=== PATIENT | female | born 1975 | race Caucasian/White ===

== ENCOUNTER 2022-12-07 14:12 | Emergency (ER) | payer OTHER, SELFPAY ==
--- NOTE | ~2022-12-07 | XR_ITS ---
EXAMINATION: XR hand RT 2V INDICATION: Right hand pain, initial encounter TECHNIQUE: Three views of the right hand are obtained. COMPARISON: None available FINDINGS: There is an acute, traumatic, closed oblique distal neck fracture of the fifth metacarpal. Mild deformity in the mid neck of the fifth metacarpal suggests prior injury. There is mild palmar an gulation at the fracture site. No additional acute fracture is identified. The joint spaces are jn l. Soft tissue swelling surrounds the fracture. IMPRESSION: 1. Oblique distal neck fracture of the fifth metacarpal with mild palmar angulation. Reviewed, dictated and finalized at location A. NICAL SOLUTIONS CONSULTANT IMPRESSION: 1. Oblique distal neck fracture of the fifth metacarpal with mild palmar angula tion.
[2022-12-07 14:15] VITALS: BP 148/92; PULSE 94; RESP 20; TEMP 37.3; O2SAT 98
--- NOTE | 2022-12-07 14:28 | PC.NURSE ---
pt declined ice pack. increased pain with ice pack.
--- NOTE | 2022-12-07 14:45 | ED.UPPEXIN ---
HPI - Extremity Injury (Upper) General Chief Complaint: Extremity Injury, Upper Stated Complaint: hand pain Time Seen by Provider: 12/07/22 14:14 Source: patient Mode of arrival: ambulatory Limitations: no limitations History of Present Illness HPI narrative: this is a 47-year-old female who presents after she fell yesterday and hit her right hand on the side of a wall causing pain some swelling with mild tingling in fingers with a brisk radial pulse on the right has decreased range of motion secondary to pain and inflammation. complaint: injury to: right Onset (ago): day(s) Other Extremity Injury: Right: hand ( bruising and swelling) Handedness: right Place: home Severity: moderate Related Data Home Medications Medication Instructions Recorded Confirmed No Home Medications 12/07/22 12/07/22 Allergies Allergy/AdvReac Type Severity Reaction Status Date / Time No Known Allergies Allergy Verified 01/10/21 11:21 Review of Systems Review of Systems: All systems reviewed & are unremarkable except as noted in HPI and below PMFSH Past Medical History Medical History Cervicalgia Encounter for screening for depression URI (upper respiratory infection) Surgical History Surgical History Masses of both breasts Remove; normal Family History Family History Mother Mitral valve prolapse Social History Social History Smoking packs per day: 1 Smoking cigarettes per day: 20.0 Years smoked: 25 Smoking pack-years: 25.00 Smoking status: Current every day smoker Tobacco type: cigarettes Alcohol intake: current Alcohol use details: social Substance use: never Substance use type: does not use Living arrangements: with family Additional living arrangements comments: Has 1 daughter Occupation/Education: occupation 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 Gender identity (if verbalized by the patient): Female Exam Const: General: healthy appearing Nutritional Appearance: well nourished Orientation/consciousness: patient oriented x3 Limitations: no limitations HENMT: Head: normal to inspection Face/Nose/Sinus: Normal external nose present Face and sinus: normal facial exam Mouth: Yes Normal oral and palatal mucosa present Eyes: Conjunctivae: conjunctivae normal Pupils: Equal, round and reactive pupils present EOM: EOMs intact bilaterally Neck: Neck: normal visual inspection Chest: Chest palpation & inspection: normal inspection of the chest Resp: Effort & Inspection: normal respiratory effort Auscultation: clear to auscultation bilaterally Cardio: Rate: regular rate Rhythm: regular rhythm GI: GI Palp: Yes Soft to palpation Back/Spine/Pelvis: Back: no CVA tenderness Skin: General skin exam: normal color Wounds: wounds noted Neuro: General: patient oriented x3, moves all extremities, no meningeal signs and no focal motor deficits Extrem: Other: Bruising and swelling anterior surface of her right hand Psych: Mental Status: mental status grossly normal Affect: normal affect Attitude: cooperative Course Course Emergency Course: patient declined any ice or pain medication, x-ray reviewed with patient showing a mildly displaced 5th metacarpal fracture of the right hand Vital Signs Vital signs: Vital Signs Temperature 37.3 C 12/07/22 14:15 Pulse Rate 94 12/07/22 14:15 Respiratory Rate 12/07/22 14:15 Blood Pressure 148/92 H 12/07/22 14:15 Pulse Oximetry 98 12/07/22 14:15 Oxygen Delivery Room Air 12/07/22 14:15 Temperature 37.3 C 12/07/22 14:15 Pulse Rate 94 12/07/22 14:15 Respiratory Rate 20 12/07/22 14:15 Blood Pressure 148/92 H 12/07/22 14:15 Pulse Oximetry 98 12/07/22 14:
[2022-12-07 15:10] VITALS: BP 121/90; PULSE 72; RESP 16; O2SAT 98
== END 2022-12-07 15:15 | disposition home or self-care (01) ==
PROVIDERS: Emergency Provider Emergency Medicine
DX: S62.91XA Unspecified fracture of right hand, initial encounter for closed fracture (principal); F17.210 Nicotine dependence, cigarettes, uncomplicated; W18.39XA Other fall on same level, initial encounter
CPT/HCPCS: 29125; 73120; 99284

== ENCOUNTER 2023-04-17 11:11 | Outpatient (CLI) | payer OTHER, SELFPAY ==
--- NOTE | ~2023-04-17 | MM_ITS ---
EXAMINATION: MM screening kirsten BI w matty HISTORY: Screening mammogram TECHNIQUE: Craniocaudal and mediolateral oblique 3-D tomosynthesis images were obtained and synthetic 2-D images were generated. CAD analysis was submitted and interpreted. COMPARISON: No prior mammogram is available for comparison at this institution. BREAST PARENCHYMAL COMPOSITION: The breasts are extremely dense, which lowers the sensitivity of mamm ography. FINDINGS: Scattered bilateral punctate benign microcalcifications. There is no evidence of suspicious mass, calcification, or architectural distortion to suggest malignancy in either breast. There has b een no suspicious interval change. IMPRESSION: 1. No mammographic evidence of malignancy. 2. Recommend routine screening mammography in one year. BI-RADS Category 2: Benign finding(s). Reviewed, dictated and finalized at location A.
--- NOTE | 2023-04-17 11:25 | ECG_ITS ---
Measurements Intervals [place] Rate: 61 P: 64 [place]: 154 QRS: 54 QRSD: 85 T: 48 QT: 401 QTc: 405 Interpretive Statements SINUS RHYTHM LOW QRS VOLTAGE IN PRECORDIAL LEADS [QRS DEFLECTION < 1.0 mV IN CHEST LEADS] ABNORMAL ECG NO PREVIOUS ECG AVAILABLE FOR COMPARISON Electronically Signed On 04-18-2023 14:41:07 CDT by Joshua Moreno M.D.
[2023-04-17 11:26] LABS: Basophils Absolute Auto 0.02 K/mm3 (0.00-0.10); Basophils Percent Auto 0.2 % (0.0-1.0); Hematocrit 43.4 % (35.0-49.0); Hemoglobin 14.1 g/dL (12.0-15.0); Immature Granulocyte Absolute 0.04 K/mm3 (0.00-0.00); Immature Granulocyte Percent A 0.4 % (0.0-0.0); Lymphocytes Absolute Auto 2.42 K/mm3 (1.10-4.50); Lymphocytes Percent Auto 24.4 % (18.0-42.0); Mean Corpuscular HGB Conc 32.5 g/dL (32.0-36.0); Mean Corpuscular Hemoglobin 30.9 pg (27.0-31.0); Mean Corpuscular Volume 95.2 fL (78.0-102.0); Mean Platelet Volume 8.8 fl (9.2-11.8); Monocytes Absolute Auto 0.74 K/mm3 (0.10-0.90); Monocytes Percent Auto 7.5 % (2.0-11.0); Neutrophils Absolute Auto 6.5 K/mm3 (1.7-7.2); Neutrophils Percent Auto 65.5 % (50.0-70.0); Platelet Count Result 274 K/mm3 (150-420); Red Blood Count 4.56 M/mm3 (4.20-5.40); Red Cell Distribution Width 12.9 % (11.6-14.4); White Blood Count 9.9 K/mm3 (4.8-10.8)
[2023-04-17 12:14] LABS: Alanine Aminotransferase 27 U/L (14-59); Albumin Level 3.7 g/dL (3.4-5.0); Alkaline Phosphatase 64 U/L (46-116); Anion Gap 10 mmol/L (8-16); Aspartate Amino Transferase 10 U/L (15-37); Bilirubin,Total 0.6 mg/dL (0.00-1.00); Blood Urea Nitrogen 13 mg/dL (7-18); Calcium 8.8 mg/dL (8.5-10.1); Carbon Dioxide 26 mmol/L (21-32); Chloride 105 mmol/L (98-108); Estimated Glomerular Filt Rate > 60; Free T4 Free Thyroxine 0.83 ng/dL (0.76-1.46); Glucose 101 mg/dL (70-99); Iron 115 ug/dL (50-170); Magnesium 1.9 mg/dL (1.8-2.4); Osmolality Calculated 292 mOsm/kg (285-295); Potassium 4.3 mmol/L (3.5-5.1); Sodium 141 mmol/L (136-145); Thyroid Stimulating Hormone 1.02 uIU/mL (0.36-3.74); Total Protein 6.9 g/dL (6.4-8.2)
[2023-04-22 06:43] LABS: Vitamin D 25 Hydroxy 26 ng/mL (30-100)
== END 2023-04-17 11:12 | disposition home or self-care (01) ==
LOC: CHSIMG 11:13
PROVIDERS: PCP Nurse Practitioner Family; Visit Provider Nurse Practitioner Family
DX: Z12.31 Encounter for screening mammogram for malignant neoplasm of breast (principal); I10 Essential (primary) hypertension; R53.83 Other fatigue; E03.9 Hypothyroidism, unspecified; Z79.899 Other long term (current) drug therapy; D64.9 Anemia, unspecified; I34.1 Nonrheumatic mitral (valve) prolapse; R94.31 Abnormal electrocardiogram [ECG] [EKG]
CPT/HCPCS: 36415; 77063; 77067; 80053; 82306; 83540; 83735; 84439; 84443; 85025; 93005

== ENCOUNTER 2023-04-20 13:17 | Outpatient (CLI) | payer OTHER, SELFPAY ==
--- NOTE | ~2023-04-20 | US_ITS ---
US breast BI complete DATE: 04/20/2023 14:08 INDICATION: Extremely dense breast tissue, which limits the sensitivity of mammogram TECHNIQUE: Complete bilateral breast ultrasound examination: All 4 quadrants and subareolar areas COMPARISON: 04/17/2023 bilateral screening mammogram FINDINGS: There are dense fibroglandular stroma is noted throughout both breasts, with limited penetr ation particularly posteriorly. There are prominent ducts in the subareolar areas. On the right there is a 5 x 6 x 8.4 mm simple cyst with through transmission posterior enhancement at 10:00 9 cm from nipple. On the left there is a parallel circumscribed hypoechoic 5.9 x 9.7 mm lesion with through transmissio n posterior enhancement, likely a benign cyst. No suspicious solid lesion is detected. IMPRESSION: BI-RADS Category 2: Benign Reviewed, dictated and finalized at Location A. Reviewed, dictated and finalized at location A. IMPRESSION: BI-RADS Category 2: Benign
== END 2023-04-20 13:18 | disposition home or self-care (01) ==
LOC: CHSIMG 13:19
PROVIDERS: PCP Nurse Practitioner Family; Visit Provider Nurse Practitioner Family
DX: R92.2 Inconclusive mammogram (principal)
CPT/HCPCS: 76641

== ENCOUNTER 2023-12-11 08:07 | Emergency (ER) | payer SELFPAY ==
--- NOTE | ~2023-12-11 | XR_ITS ---
EXAMINATION: XR chest 1V portable INDICATION: Cough TECHNIQUE: Portable AP chest at 0832 hours COMPARISON: 02/18/2018 FINDINGS: There are subtle airspace opacities of the left midlung zone. No pleural effusion or pneumo thorax. The cardiomediastinal silhouette is normal. IMPRESSION: 1. Subtle airspace opacities of the left midlung zone, likely pneumonia. Reviewed, dictated and finalized at location L. UCE ASSOCIATE
[2023-12-11 08:17] VITALS: BP 134/88; PULSE 86; RESP 20; TEMP 37.2; O2SAT 98
--- NOTE | 2023-12-11 08:24 | ED.GENADULT ---
HPI - General Adult General Chief complaint: Upper Respiratory Infection Stated complaint: URI Time Seen by Provider: 12/11/23 08:10 History of Present Illness HPI narrative: Jesse is a 48F with a PMH of depression and tobacco abuse that presented to the ED not feeling well. A cough started a few days ago. However, the next day she had fatigue, body aches, wheezing, and dyspnea. It was not getting any better so she came to the ED. Related Data Allergies Allergy/AdvReac Type Severity Reaction Status Date / Time No Known Allergies Allergy Verified 12/11/23 08:20 Review of Systems Review of Systems: All systems reviewed & are unremarkable except as noted in HPI and below PMFSH Past Medical History Medical History Cervicalgia Encounter for screening for depression URI (upper respiratory infection) Surgical History Surgical History Masses of both breasts Remove; normal Family History Family History Mother Mitral valve prolapse Social History Social History Smoking packs per day: 1 Smoking cigarettes per day: 20.0 Years smoked: 25 Smoking pack-years: 25.00 Smoking status: Current every day smoker Tobacco type: cigarettes Alcohol intake: current Alcohol use details: social Substance use: never Substance use type: does not use Lack of Transportation: No Lack of Food: Never True Current Housing: I Have Housing Concerned About Future Housing: No Difficulty Paying Gas/Electric Bills: No Difficulty Paying for Meds: No Currently Unemployed: No Education: High School Diploma/GED Living arrangements: with family Additional living arrangements comments: Has 1 daughter Occupation/Education: occupation 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[employer] Gender identity (if verbalized by the patient): Female Exam Const: General: cooperative, healthy appearing, comfortable, no acute distress, well developed, alert, awake and Physically active Orientation/consciousness: oriented to person, oriented to place and oriented to time HENMT: Head: normal to inspection, normocephalic and atraumatic Ears: hearing grossly normal bilaterally and external ears normal Face/Nose/Sinus: Normal external nose present Eyes: General: appearance normal, both eyes and all related structures Periorbital: periorbital findings normal Sclera: sclerae normal Pupils: Equal, round and reactive pupils present Neck: Neck: normal visual inspection Chest: Chest palpation & inspection: normal inspection of the chest Resp: Effort & Inspection: normal respiratory effort, able to speak in complete sentences and no respiratory distress Auscultation: clear to auscultation bilaterally Cardio: Jugular venous distension: no JVD Rate: regular rate Rhythm: regular rhythm GI: Inspection: normal to inspection GI Palp: Yes Soft to palpation Auscultation: normal bowel sounds Skin: General skin exam: normal color and no rashes or lesions noted Neuro: General: oriented to person, oriented to place and oriented to time Cranial nerves: Yes Equal, round and reactive pupils present Extrem: General: normal to inspection Course Course Emergency Course: Ordered labs, CXR, EKG, prednisone, azithromycin and viral testing as well as toradol. EXAMINATION: XR chest 1V portable INDICATION: Cough TECHNIQUE: Portable AP chest at 0832 hours COMPARISON: 02/18/2018 FINDINGS: There are subtle airspace opacities of the left midlung zone. No pleural effusion or pneumothorax. The cardiomediastinal silhouette is normal. IMPRESSION: 1. Subtle airspace opacities of the left midlung zone, likely pneumonia. +for influenza B but it has been greater than 28 hours so she is not a candidate for t
[2023-12-11] MEDS: AZITHROMYCIN 250 MG TABLET 500 MG PO (08:41)
[2023-12-11] MEDS: KETOROLAC 30 MG/ML VIAL (*BKC) IM (08:42)
[2023-12-11] MEDS: predniSONE 40 MG, predniSONE 10 MG 50 MG PO (08:42)
[2023-12-11 08:44] VITALS: BP 141/59; TEMP 37.9
[2023-12-11 08:53] LABS: Basophils Absolute Auto 0.01 K/mm3 (0.00-0.10); Basophils Percent Auto 0.1 % (0.0-1.0); Eosinophils Absolute Auto 0.07 K/mm3 (0.02-0.50); Hematocrit 40.3 % (35.0-49.0); Hemoglobin 13.1 g/dL (12.0-15.0); Immature Granulocyte Absolute 0.04 K/mm3 (0.00-0.00); Immature Granulocyte Percent A 0.6 % (0.0-0.0); Lymphocytes Absolute Auto 0.76 K/mm3 (1.10-4.50); Lymphocytes Percent Auto 10.8 % (18.0-42.0); Mean Corpuscular HGB Conc 32.5 g/dL (32.0-36.0); Mean Corpuscular Hemoglobin 30.1 pg (27.0-31.0); Mean Corpuscular Volume 92.6 fL (78.0-102.0); Mean Platelet Volume 8.8 fl (9.2-11.8); Monocytes Absolute Auto 0.63 K/mm3 (0.10-0.90); Neutrophils Absolute Auto 5.5 K/mm3 (1.7-7.2); Neutrophils Percent Auto 78.5 % (50.0-70.0); Platelet Count Result 188 K/mm3 (150-420); Red Blood Count 4.35 M/mm3 (4.20-5.40); Red Cell Distribution Width 13.2 % (11.6-14.4)
[2023-12-11 09:02] LABS: SARS-CoV-2 RNA PCR Negative (Negative)
[2023-12-11 09:04] LABS: Influenza A QL RT-PCR Negative (Negative); Influenza B QL RT-PCR Positive (Negative); RSV RNA, RT-PCR Negative (Negative); Strep Group A RT-PCR NOT DETECTED (Negative)
[2023-12-11 09:12] LABS: Alanine Aminotransferase 36 U/L (14-59); Albumin Level 3.3 g/dL (3.4-5.0); Alkaline Phosphatase 66 U/L (46-116); Anion Gap 9 mmol/L (8-16); Aspartate Amino Transferase 19 U/L (15-37); Bilirubin,Total 0.3 mg/dL (0.00-1.00); Blood Urea Nitrogen 10 mg/dL (7-18); Calcium 7.9 mg/dL (8.5-10.1); Carbon Dioxide 26 mmol/L (21-32); Chloride 100 mmol/L (98-108); Estimated CRCL calculation 73 ml/min; Estimated Glomerular Filt Rate > 60; Glucose 110 mg/dL (70-99); Osmolality Calculated 280 mOsm/kg (285-295); Potassium 4.2 mmol/L (3.5-5.1); Sodium 135 mmol/L (136-145); Total Protein 6.9 g/dL (6.4-8.2)
--- NOTE | 2023-12-11 09:15 | PC.NURSE ---
ICE PACK PROVIDED, PT HAS DIAPHORESIS NOTED, REPORTS PAIN IS IMPROVING. PT IS AWAITING RESULTS AT THIS TIME. WILL CONTINUE TO MONITOR.
[2023-12-11] MEDS: AMOXICILLIN/CLAVULANATE K 875-125 MG TAB 1 TABLET PO (09:17)
[2023-12-11 09:25] VITALS: BP 138/60; PULSE 82; RESP 18; TEMP 37.3; O2SAT 99
--- NOTE | 2023-12-17 14:48 | PC.NURSE ---
FINAL BLOOD CULTURE REPORT, NO GROWTH AFTER 5 DAYS.
== END 2023-12-11 09:25 | disposition home or self-care (01) ==
PROVIDERS: Emergency Provider Family Medicine; PCP Nurse Practitioner Family
DX: J10.1 Influenza due to other identified influenza virus with other respiratory manifestations (principal); J18.9 Pneumonia, unspecified organism; F32.A Depression, unspecified; F17.210 Nicotine dependence, cigarettes, uncomplicated; Z20.822 Contact with and (suspected) exposure to COVID-19
CPT/HCPCS: 36415; 71045; 80053; 85025; 87040; 87637; 87651; 96372; 99283; A9270; J1885; J7512

== ENCOUNTER 2023-12-16 19:02 | Emergency (ER) | payer SELFPAY ==
--- NOTE | ~2023-12-16 | XR_ITS ---
EXAMINATION: XR chest 1V portable Exam Date/Time: 12/16/2023 19:15 REPAIRER CONTROLLER TESTER HISTORY: PNEUMONIA. INFLUENZA B. Comparison: 12/11/2023. RESULT: Lines, tubes, and devices: None. Lungs and pleura: Clear. Cardiomediastinal silhouette: Stable. Other: No acute osseous or upper abdominal finding. IMPRESSION: No acute cardiopulmonary process. Reviewed, dictated and finalized at location K. IRER CONTROLLER TESTER
[2023-12-16 19:03] VITALS: BP 119/82; PULSE 64; RESP 20; TEMP 36.6; O2SAT 99
[2023-12-16 19:05] VITALS: O2SAT 95
--- NOTE | 2023-12-16 19:06 | ED.DIZZY ---
HPI - Dizziness General Chief Complaint: Dizziness Stated Complaint: post flu symptoms; dizziness Time Seen by Provider: 12/16/23 19:03 Source: patient Mode of arrival: ambulatory Limitations: no limitations History of Present Illness HPI Narrative: Patient is a 48-year-old female with influenza B, pneumonia and shingles. She was seen here last week and given Augmentin and azithromycin with prednisone. She is feeling light headed and near syncopal feeling with dizziness. Possible side effect of prednisone at this time as well. She is generally just not feeling better. she is having shortness of breath as well. She is having anxiety. She wishes she felt better at this point. elicited complaint: dizziness and lightheadedness Onset (ago): day(s) (2) Timing: gradual onset Severity: moderate Description: lightheadedness and off-balance Context: change in medication History of similar symptoms: No Exacerbating factors: nothing Relieving factors: nothing Associated symptoms: malaise Related Data Allergies Allergy/AdvReac Type Severity Reaction Status Date / Time No Known Allergies Allergy Verified 12/11/23 08:20 Review of Systems Review of Systems: All systems reviewed & are unremarkable except as noted in HPI and below Constitutional: Constitutional: Reports no additional constitutional complaints Eyes: Eyes: Reports no additional eye complaints ENT: Reports system reviewed and no additional complaints, except as documented Cardiovascular: Cardiovascular: Reports no additional cardiovascular complaints Respiratory: Respiratory: Reports no additional respiratory complaints Gastrointestinal: Gastrointestinal: Reports no additional gastrointestinal complaints Genitourinary: Genitourinary: Reports no additional female genitourinary complaints Musculoskeletal: Musculoskeletal: Reports no additional musculoskeletal complaints Integumentary/Breasts: Skin/Breast: Reports system reviewed and no additional complaints, except as docu Neurologic: Reports system reviewed and no additional complaints, except as documented Psychiatric: Psychiatric: Reports no additional psychiatric complaints Endocrine: Endocrine: Reports no additional endocrine complaints Hematologic/Lymphatic: Hematologic/Lymphatic: Reports no additional hematologic/lymphatic complaints Allergic/Immunologic: Allergic/Immunologic: Reports no additional allergic/immunologic complaints PMFSH Past Medical History Medical History Cervicalgia Encounter for screening for depression URI (upper respiratory infection) Surgical History Surgical History Masses of both breasts Remove; normal Family History Family History Mother Mitral valve prolapse Social History Social History Smoking packs per day: 1 Smoking cigarettes per day: 20.0 Years smoked: 25 Smoking pack-years: 25.00 Smoking status: Current every day smoker Tobacco type: cigarettes Alcohol intake: current Alcohol use details: social Substance use: never Substance use type: does not use Lack of Transportation: No Lack of Food: Never True Current Housing: I Have Housing Concerned About Future Housing: No Difficulty Paying Gas/Electric Bills: No Difficulty Paying for Meds: No Currently Unemployed: No Education: High School Diploma/GED Living arrangements: with family Additional living arrangements comments: Has 1 daughter Occupation/Education: 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
--- NOTE | 2023-12-16 19:11 | ECG_ITS ---
Measurements Intervals [place] Rate: 61 P: 55 [place]: 160 QRS: 52 QRSD: 91 T: 54 QT: 421 QTc: 425 Interpretive Statements SINUS RHYTHM WITHIN NORMAL LIMITS ] COMPARED TO ECG 04/17/2023 12:07:32 NO SIGNIFICANT CHANGE Electronically Signed On 12-17-2023 7:33:10 TOWER DIRECTOR by Jimy Clayton M.D.
[2023-12-16] MEDS: SODIUM CHLORIDE 0.9% IV 1,000 ML 999 ML IV CONT (19:39)
[2023-12-16 19:43] LABS: Hemoglobin 13.6 g/dL (12.0-15.0); Mean Corpuscular HGB Conc 32.4 g/dL (32.0-36.0); Mean Corpuscular Volume 92.7 fL (78.0-102.0); Mean Platelet Volume 8.9 fl (9.2-11.8); Platelet Count Result 296 K/mm3 (150-420); Red Blood Count 4.53 M/mm3 (4.20-5.40); Red Cell Distribution Width 12.8 % (11.6-14.4); White Blood Count 13.3 K/mm3 (4.8-10.8)
[2023-12-16 20:00] VITALS: BP 114/69; PULSE 66; RESP 18; O2SAT 100
[2023-12-16 20:01] LABS: D Dimer 0.39 mg/L (0.19-0.50)
[2023-12-16 20:02] LABS: Alanine Aminotransferase 26 U/L (14-59); Albumin Level 3.1 g/dL (3.4-5.0); Alkaline Phosphatase 70 U/L (46-116); Anion Gap 12 mmol/L (8-16); Aspartate Amino Transferase < 10 U/L (15-37); Bilirubin,Total 0.2 mg/dL (0.00-1.00); Blood Urea Nitrogen 16 mg/dL (7-18); Calcium 8.1 mg/dL (8.5-10.1); Carbon Dioxide 23 mmol/L (21-32); Chloride 103 mmol/L (98-108); Estimated CRCL calculation 74 ml/min; Estimated Glomerular Filt Rate > 60; Glucose 130 mg/dL (70-99); Osmolality Calculated 289 mOsm/kg (285-295); Potassium 4.1 mmol/L (3.5-5.1); Sodium 138 mmol/L (136-145); Total Protein 6.4 g/dL (6.4-8.2); Troponin I 4.2 ng/L (0.00-60.4)
[2023-12-16 20:08] LABS: Atypical Lymphocytes Present; Band Neutrophils Percent 0 % (0-6); Eosinophils Absolute Manual 0.26 K/mm3 (0.02-0.5); Eosinophils Percent Manual 2 % (1-6); Lymphocytes Absolute Manual 5.58 K/mm3 (1.1-4.5); Lymphocytes Percent Manual 42 % (18-44); Monocytes Absolute Manual 0.39 K/mm3 (0.1-0.90); Monocytes Percent Manual 3 % (3-9); Neutrophils Absolute Manual 7.04 K/mm3 (1.7-7.2); Neutrophils Percent Manual 53 % (46-73); Platelet Estimate Adequate (Adequate); Schistocytes None Seen (NORMAL); Total Cells Counted 100
[2023-12-16 20:21] VITALS: BP 119/72; PULSE 82; RESP 18; TEMP 36.6; O2SAT 100
--- NOTE | 2023-12-23 12:08 | PC.NURSE ---
Final blood culture report, no growth after 5 days, no further action or treatment needed.
== END 2023-12-16 20:21 | disposition home or self-care (01) ==
PROVIDERS: Emergency Provider Emergency Medicine; PCP Nurse Practitioner Family
DX: J10.1 Influenza due to other identified influenza virus with other respiratory manifestations (principal); F17.210 Nicotine dependence, cigarettes, uncomplicated
CPT/HCPCS: 36415; 71045; 80053; 84484; 85025; 85380; 87040; 93005; 96360; 99284; J7030

== ENCOUNTER 2024-05-28 13:13 | Outpatient (CLI) | payer SELFPAY ==
--- NOTE | 2024-05-28 13:24 | ECG_ITS ---
Test Date: 2024-05-28 13:31:14 Measurements Intervals [place] Rate: 72 P: 67 CT: 146 QRS: 62 QRSD: 88 T: 57 QT: 377 QTc: 414 Interpretive Statements SINUS RHYTHM WITH MARKED SINUS ARRHYTHMIA No previous ECG available for comparison Electronically Signed On 05-28-2024 17:00:42 CDT by Jay Fajardo M.D.
[2024-05-28 13:25] LABS: Basophils Absolute Auto 0.02 K/mm3 (0.00-0.10); Basophils Percent Auto 0.1 % (0.0-1.0); Eosinophils Absolute Auto 0.11 K/mm3 (0.02-0.50); Eosinophils Percent Auto 0.8 % (1.0-6.0); Hematocrit 46.8 % (35.0-49.0); Hemoglobin 15.9 g/dL (12.0-15.0); Immature Granulocyte Absolute 0.06 K/mm3 (0.00-0.00); Immature Granulocyte Percent A 0.4 % (0.0-0.0); Lymphocytes Absolute Auto 2.92 K/mm3 (1.10-4.50); Lymphocytes Percent Auto 21.1 % (18.0-42.0); Mean Corpuscular Hemoglobin 31.2 pg (27.0-31.0); Mean Corpuscular Volume 91.9 fL (78.0-102.0); Mean Platelet Volume 8.7 fl (9.2-11.8); Monocytes Absolute Auto 0.82 K/mm3 (0.10-0.90); Monocytes Percent Auto 5.9 % (2.0-11.0); Neutrophils Percent Auto 71.7 % (50.0-70.0); Platelet Count Result 354 K/mm3 (150-420); Red Blood Count 5.09 M/mm3 (4.20-5.40); Red Cell Distribution Width 13.3 % (11.6-14.4); White Blood Count 13.8 K/mm3 (4.8-10.8)
[2024-05-28 13:43] LABS: Alanine Aminotransferase 21 U/L (14-59); Albumin Level 4.3 g/dL (3.4-5.0); Alkaline Phosphatase 82 U/L (46-116); Aspartate Amino Transferase 11 U/L (15-37); Bilirubin,Total 0.7 mg/dL (0.00-1.00); Blood Urea Nitrogen 13 mg/dL (7-18); Calcium 9.3 mg/dL (8.5-10.1); Chloride 103 mmol/L (98-108); Estimated Glomerular Filt Rate 60; Glucose 98 mg/dL (70-99); Osmolality Calculated 290 mOsm/kg (285-295); Potassium 4.3 mmol/L (3.5-5.1); Sodium 140 mmol/L (136-145); Total Protein 7.8 g/dL (6.4-8.2)
[2024-05-28 13:49] LABS: Anion Gap 12 mmol/L (4-12); Carbon Dioxide 25 mmol/L (21-32); Hemoglobin A1C 5.4 % (<5.7); Troponin I < 4.0 ng/L (0.00-60.4)
[2024-05-28 17:47] LABS: SARS-CoV-2 RNA PCR Negative (Negative)
[2024-05-28 17:49] LABS: Influenza A QL RT-PCR Negative (Negative); Influenza B QL RT-PCR Negative (Negative)
[2024-07-12 12:23] LABS: Result VUS
== END 2024-05-28 13:14 | disposition home or self-care (01) ==
LOC: CHSLAB 13:16
PROVIDERS: PCP Nurse Practitioner Family; Visit Provider Nurse Practitioner Family
DX: Z00.00 Encounter for general adult medical examination without abnormal findings (principal); R05.8 Other specified cough; Z80.3 Family history of malignant neoplasm of breast; R92.30 Dense breasts, unspecified; R07.9 Chest pain, unspecified; I49.8 Other specified cardiac arrhythmias
CPT/HCPCS: 36415; 80053; 81162; 83036; 84443; 84484; 85025; 87636; 93005

== ENCOUNTER 2024-10-06 16:21 | Outpatient (CLI) | payer SELFPAY ==
--- NOTE | ~2024-10-06 | XR_ITS ---
EXAMINATION: XR hip BI wo pelvis DATE: 10/06/2024 16:53 INDICATION: Lumbago with sciatica, right-sided. TECHNIQUE: An anteroposterior view of the pelvis and 2 views of each hip were obtained. COMPARISON: None. FINDINGS: Alignment is normal. No fracture. The hip joints are normal. IMPRESSION: 1. Normal hips. Reviewed, dictated and finalized at location A. OLOGY TEACHER IMPRESSION: 1. Normal hips.
--- NOTE | ~2024-10-06 | XR_ITS ---
EXAMINATION: XR lumbar spine 2-3V DATE: 10/06/2024 16:53 INDICATION: Lumbago with sciatica, right-sided. TECHNIQUE: 3 views of lumbar spine were obtained. COMPARISON: None. FINDINGS: There is 4 degrees dextrocurvature of lumbar spine. L5 is a transitional segment. Vertebral body heights are normal. There is mildly decreased disc height at L4-L5. There is multilevel mild fa cet joint osteoarthritis. IMPRESSION: 1. Mild lumbar spondylosis. Reviewed, dictated and finalized at location A. GION TEACHER IMPRESSION: 1. Mild lumbar spondylosis.
== END 2024-10-06 16:22 | disposition home or self-care (01) ==
PROVIDERS: PCP Nurse Practitioner Family; Visit Provider Nurse Practitioner Family
DX: M54.41 Lumbago with sciatica, right side (principal); M43.06 Spondylolysis, lumbar region
CPT/HCPCS: 72100; 73521

== ENCOUNTER 2024-10-21 14:38 | Outpatient (CLI) | payer BC, SELFPAY | END 2024-10-21 14:39 | disposition home or self-care (01) | PROVIDERS: PCP Family Medicine; Visit Provider Family Medicine | DX: N64.3 Galactorrhea not associated with childbirth (principal) | CPT/HCPCS: 36415; 84146 ==

== ENCOUNTER 2024-10-25 07:04 | Outpatient (CLI) | payer BC, SELFPAY ==
--- NOTE | ~2024-10-25 | MR_ITS ---
MRI of the lumbar spine Clinical History: Back pain, right sciatica Technique: Axial T2-weighted images, and sagittal T1-weighted, T2-weighted, and T2 fat-sat images wer e acquired. Findings: There is no fracture or subluxation lumbar spine. Vertebral bodies maintain normal height a nd alignment. No bone marrow signal abnormality seen. At L1-L2, there is no disc bulge or herniation. There is minimal facet hypertrophy. No central canal stenosis or neural foraminal narrowing. At L2-L3, there is mild diffuse disc bulge with mild facet hypertrophy. No central canal stenosis. Th ere is moderate right neural foraminal narrowing. Left neural foramen preserved. At L3-L4, there is disc bulge and mild facet hypertrophy. No central canal stenosis. There is no defi nite neural foraminal narrowing. At L4-L5, there is diffuse disc bulge with moderate to advanced facet arthropathy. There is moderate to severe spinal canal stenosis/thecal sac compression. There is moderate right neural foraminal narr owing and mild left neural foraminal narrowing. At L5-S1, there is no disc bulge or herniation. No spinal canal stenosis or definite neural foraminal narrowing. Paravertebral soft tissues are unremarkable. Impression: Advanced degenerative spondylosis at L4-L5, as detailed above. Mild degenerative change in the remain obed of the lumbar spine, as above. Reviewed, dictated and finalized at [facility]. TAL ASSOCIATE MEDIA DIRECTOR Impression: Advanced degenerative spondylosis at L4-L5, as detailed above. Mild degenerativ e change in the remainder of the lumbar spine, as above.
== END 2024-10-25 07:05 | disposition home or self-care (01) ==
LOC: CHSIMG 07:06
PROVIDERS: PCP Family Medicine; Visit Provider Nurse Practitioner Family
DX: R20.0 Anesthesia of skin (principal); M54.41 Lumbago with sciatica, right side; M43.06 Spondylolysis, lumbar region
CPT/HCPCS: 72148

== ENCOUNTER 2024-11-12 09:38 | Outpatient (CLI) | payer BC, SELFPAY ==
--- NOTE | ~2024-11-12 | MR_ITS ---
MR breast BI wo/w con 11/12/2024 10:48 ORAL THERAPIST INDICATION: Galactorrhea TECHNIQUE: MRI of the breasts perform using standard protocol pre-and post IV contrast with the follo wing sequences: Axial T2 STIR, axial T1, axial vibrant T1 with fat suppression precontrast and multip hasic postcontrast. 18 cc MultiHance administered intravenously. COMPARISON: Mammogram dated 04/17/2023 and bilateral breast ultrasound dated 04/20/2023 FINDINGS: The breasts are composed of extremely fibroglandular tissue. There are are benign bilateral breast cysts. Right breast: There are no abnormalities on the precontrast sequences. There is mild-moderate backgro und parenchymal enhancement. No enhancing lesions following contrast administration. No areas of en hancement meeting threshold criteria on CAD analysis. No evidence of signal abnormalities in the axi llary or internal mammary node distributions. LEFT BREAST: No signal abnormalities on precontrast sequences. There is mild-moderate background par enchymal enhancement. No enhancing lesions following contrast administration. No areas of enhancem ent meeting threshold criteria on CAD analysis. No evidence of signal abnormalities in the axillary or internal mammary node distributions.] IMPRESSION: 1: Right breast: Negative. No evidence of malignancy. BI-RADS category 1. Recommend annual mammo graphy follow-up. 2: Left breast: Negative. No evidence of malignancy. BI-RADS category 1. Recommend annual mammogr aphy follow-up. Follow-up MRI may be useful for supplementing mammographic evaluation as clinically indicated. Reviewed, dictated and finalized at location A. THERAPIST IMPRESSION: 1: Right breast: Negative. No evidence of malignancy. BI-RADS category 1. Recommend annual mammography follow-up. 2: Left breast: Negative. No evidence of malignancy. BI-RADS category 1. Re commend annual mammography follow-up. Follow-up MRI may be useful for supplementing mammographic evaluation as clinic ally indicated.
== END 2024-11-12 09:39 | disposition home or self-care (01) ==
PROVIDERS: PCP Family Medicine; Visit Provider Nurse Practitioner Family
DX: N64.3 Galactorrhea not associated with childbirth (principal); R92.30 Dense breasts, unspecified; R23.4 Changes in skin texture
CPT/HCPCS: 77049; A9577; C8908

== ENCOUNTER 2025-06-06 01:27 | Emergency (ER) | payer BC, SELFPAY ==
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
--- OUTSIDE RECORDS SUMMARY | 2025-06-06 01:29 | XMS_ITS | Clinical Summary ---
Author Organization [facility] Address [address] [place] [address] Care Team Providers Care Millinery Worker Name Role Phone Unavailable Primary Care Provider Unavailabl e Source Comments [facility],non-owned Affiliates and Associated Physician Practices is amultiple site organization consisting of ambulatory clinics and hospital sitesin [place], [place], [place] and [place]. This disclosure is being madepursuant to the Care Everywhere program and may not contain all information available regarding this patient. Last updated 18.[facility] Allergies No known active allergies Medications * Be aware that medications may not be up to date on this document. Alwaysverify current medications with the patient. No known medications Social History Tobacco Use Types Packs/Day Years Used Date Smoking Tobacco: Every Day Cigarettes 0.5 20 Comments No Sex and Gender Information Value Date Recorded Sex Assigned at Not on file Legal Sex Female 12:42 PM CDT Gender Identity Not on file Sexual Orientation Not on file Last Filed Vital Signs Vital Sign Reading Time Taken Comments Blood Pressure 112/68 03/13/2017 12:47 PM CDT Pulse 67 03/13/2017 12:47 PM CDT Temperature 36.9 C (98.5 F) 03/13/2017 12:47 PM CDT Respiratory Rate 16 03/13/2017 12:47 PM CDT Oxygen Saturation 98% 03/13/2017 12:47 PM CDT Inhaled Oxygen Concentration - - Weight 72.6 kg (160 lb) 03/13/2017 12:47 PM CDT Height 175.3 cm (5' 9) 03/13/2017 12:47 PM CDT Body Mass Index 23.63 03/13/2017 12:47 PM CDT Plan of Treatment Health Maintenance Due Date Last Done Comments RAYNA (AGES 45-75) - COL ON CA SCREENING 1976 COLON MONITORING 1976 COLONOSCOPY - COLON CA SCREENING 1976 CT COLONOGRAPHY - COLON CA SCREENING 1976 Colorectal Cancer Screening 1976 FIT - COLON CA SCREENING 1976 FLEX SIG - COLON CA SCREENING 1976 LIPID TESTING 1976 MAMMOGRAM 1976 HIV SCREENING 1991 HEPATITIS C SCREENING 08/23/1994 DTAP/TDAP/TD VACCINES (1 - Tdap) 1995 HEPATITIS B VACCINE (1 of 3 - 19+ 3-dose series) 1995 COVID-19 VACCINE (1 - 2023-2 5 season) 2024 DEPRESSION SCREENING 10/22/2024 INFLUENZA VACCINE (#1) 2025 ZOSTER VACCINE (1 of 2) 2026 HIB VACCINE Aged Out No longer eligi ble based on patient's age to complete this topic HPV VACCINE Aged Out No longer eligi ble based on patient's age to complete this topic MENINGOCOCCAL (Group B) VACC INE SHARED DECISION-MAKING Aged Out No longer eligibl e based on patient's age to complete this topic MENINGOCOCCAL GROUPS A/C/Y/W VACCINE Aged Out No longer eligible b ased on patient's age to complete this topic PNEUMOCOCCAL VACCINE Aged Out No long er eligible based on patient's age to complete this topic
--- OUTSIDE RECORDS SUMMARY | 2025-06-06 01:29 | XMS_ITS | Clinical Summary ---
Author Organization [facility] Address [address] [place] [id number] Care Team Providers Care Paper Products Machine Operator Name Role Phone Janelle Weathers CELL PLASTERER Primary Care Provider [phone] Allergies No known active allergies Medications ondansetron (ZOFRAN-ODT) 4 MG disintegrating tablet Take 1 tablet (4 mg total) by mouth every 8 (eight) hours as needed for Nausea. 10 tablet Active Social History Tobacco Use Types Packs/Day Years Used Date Smoking Tobacco: Every Day Cigarettes Smokeless Tobacco: Never Tobacco Cessation:Ready to Q uit: Not Asked; Counseling Given: Not Answered Alcohol Use Standard Drinks/Week Comments Not Currently 0 (1 standard drink = 0.6 oz pur e alcohol) Comments No Sex and Gender Information Value Date Recorded Sex Assigned at Female 12/08/2024 3:29 PM AUTO RENTAL CLERK Legal Sex Female 4:20 PM CDT Gender Identity Not on file Sexual Orientation Not on file Last Filed Vital Signs Vital Sign Reading Time Taken Comments Blood Pressure 129/88 12/08/2024 3:31 PM AUTO RENTAL CLERK Pulse 92 12/08/2024 3:31 PM AUTO RENTAL CLERK Temperature 36.6 C (97.8 F) 12/08/2024 3:31 PM AUTO RENTAL CLERK Respiratory Rate 18 12/08/2024 3:31 PM AUTO RENTAL CLERK Oxygen Saturation 100% 12/08/2024 3:31 PM AUTO RENTAL CLERK Inhaled Oxygen Concentration - - Weight 75.8 kg (167 lb) 12/08/2024 3:31 PM AUTO RENTAL CLERK Height 172.7 cm (5' 8) 12/08/2024 3:31 PM AUTO RENTAL CLERK Body Mass Index 25.39 12/08/2024 3:31 PM AUTO RENTAL CLERK Plan of Treatment Health Maintenance Due Date Last Done Comments Cervical Cancer Screening Pa p Smear (Age 30 to 64) Every 3 Years 1976 Colorectal Cancer Screening Colonoscopy (10 Years) 1976 Annual Physical 1979 Hepatitis C 1994 DTaP, Tdap and Td Vaccines ( 1 - Tdap) 1995 Hepatitis B Vaccines (1 of 3 - 19+ 3-dose series) 1995 Pneumococcal Vaccine: Pediat rics (0 to 5 Years) and At-Risk Patients (6 to 49 Years) (1 of 2 - PCV) 1995 Cervical Cancer Screening Pa p with HPV Testing (Age 30 to 64) Every 5 Years 2006 Cervical Cancer Screening with HPV 2006 Mammogram Screening 2016 COVID-19 Vaccine (2023-2 5 season) 2024 Meningococcal B Vaccine Aged Out No l onger eligible based on patient's age to complete this topic Meningococcal Vaccine Aged Out No daniela carola eligible based on patient's age to complete this topic RSV Immunizations Under 20 Months Aged Out No longer eligible based on patient's age to complete this topic Care Teams Paper Products Machine Operator Relationship Specialty Start Date End Date Janelle Weathers FNP [address] [place] [address] PCP - General NURSE PRACTITIONER 08/12/23
[2025-06-06 01:30] VITALS: BP 142/102; PULSE 118; RESP 20; TEMP 37.1; O2SAT 98
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
[2025-06-06 03:28] LABS: Hematocrit 41.5 % (35.0-49.0); Hemoglobin 13.7 g/dL (12.0-15.0); Immature Granulocyte Percent A 0.4 % (0.0-0.0); Lymphocytes Absolute Auto 2.55 K/mm3 (1.10-4.50); Mean Corpuscular HGB Conc 33.0 g/dL (32-36); Mean Corpuscular Hemoglobin 30.8 pg (27.0-31.0); Mean Corpuscular Volume 93.3 fL (78.0-102.0); Nucleated Red Blood Cells Absolute Auto 0.00 K/mm3 (0.00-0.00); Nucleated Red Blood Cells Perc 0.0 % (0-0.0); Platelet Count Result 305 K/mm3 (150-420); Red Blood Count 4.45 M/mm3 (4.20-5.40); White Blood Count 12.3 K/mm3 (4.8-10.8)
[2025-06-06 03:40] LABS: Alanine Aminotransferase 16 U/L (6-35); Albumin Level 4.6 g/dL (3.5-5.1); Alkaline Phosphatase 65 U/L (38-126); Anion Gap 10 mmol/L (4-12); Aspartate Amino Transferase 20 U/L (14-36); Bilirubin,Total 0.7 mg/dL (0.2-1.3); Blood Urea Nitrogen 13 mg/dL (7-17); Calcium 9.3 mg/dL (8.4-10.2); Carbon Dioxide 21 mmol/L (22-30); Chloride 110 mmol/L (98-107); Estimated CRCL calculation 64 ml/min; Estimated Glomerular Filt Rate > 60; Glucose 120 mg/dL (65-110); Osmolality Calculated 293 mOsm/kg (285-295); Potassium 4.4 mmol/L (3.4-5.0); Sodium 141 mmol/L (137-145); Total Protein 7.4 g/dL (6.3-8.2)
[2025-06-06 03:52] LABS: SPREG INTERNAL CONTROL Positive; Serum Qual hCG Negative
[2025-06-06] MEDS: ACETAMINOPHEN 500 MG TABLET 1000 MG PO (03:57)
--- NOTE | 2025-06-06 04:48 | WNDPHOTO ---
PHOTO ONLY - See Nursing Notes and/ or assessments for documentation.
--- NOTE | 2025-06-06 04:51 | WNDPHOTO ---
PHOTO ONLY - See Nursing Notes and/ or assessments for documentation.
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
[2025-06-06 05:12] VITALS: BP 133/72; PULSE 89; RESP 16; TEMP 37; O2SAT 100
== END 2025-06-06 05:12 | disposition home or self-care (01) ==
PROVIDERS: Emergency Provider Emergency Medicine
DX: S10.93XA Contusion of unspecified part of neck, initial encounter (principal); S90.32XA Contusion of left foot, initial encounter; S60.041A Contusion of right ring finger without damage to nail, initial encounter; Y04.8XXA Assault by other bodily force, initial encounter; F17.210 Nicotine dependence, cigarettes, uncomplicated
CPT/HCPCS: 36415; 70491; 73130; 73630; 80053; 84703; 85025; 99284; A9270; Q9967